=== PATIENT | female | born 1995 | race Caucasian/White ===

== ENCOUNTER → 2017-04-08 | Outpatient (CLI) | payer OTHER ==
[~2017-04-08] MED LIST: METHACHOLINE KIT (J7674) INH ONE
--- NOTE | 2017-04-08 08:20 | PFTRPT ---
Tech: Irina HART RRT Age: 21 Sex: Female Race: Height: 63.50 Inches Weight: 129.00 Lbs BSA: 1.61 Diagnosis: R05 METHACHOLINE CHALLENGE REPORT: ORDERING PROVIDER: Valentin Alicea MD DATE OF SERVICE: 04/08/17 INTERPRETATION: The study was of excellent technical quality. Under protocol, methacholine was administered. At a dose of 0.25 mg (1.375 CDUs), a 37% decline in the FEV1 was noted. The PC20 of 0.05 is significant Flow rates returned to baseline post bronchodilator administration. IMPRESSION: Positive methacholine challenge study. MTDD
== END ==
LOC: M CARPUL 07:34
PROVIDERS: ATTEND Internal Medicine Pulmonary Disease
DX: R05 Cough (principal)
CPT/HCPCS: 94070; J7674

== ENCOUNTER 2018-06-30 04:34 | Inpatient (IN) | payer OTHER, SELFPAY ==
[2018-06-30] MEDS: LACTATED RINGER'S 1000 ML IV (05:02)
[2018-06-30 05:37] LABS: HEMATOCRIT 33.2 % (36.0-47.0); HEMOGLOBIN 10.8 g/dl (12.0-15.5); MEAN CORPUSCULAR HEMOGLOBIN 28.5 pg (27.0-33.0); MEAN CORPUSCULAR HGB CONC 32.5 g/dl (32.0-36.5); MEAN CORPUSCULAR VOLUME 87.6 fl (80.0-96.0); PLATELET COUNT, AUTOMATED 251 10^3/uL (150-450); RED BLOOD COUNT 3.79 10^6/uL (4.00-5.40); RED CELL DISTRIBUTION WIDTH 14.6 % (11.5-14.5); WHITE BLOOD COUNT 13.3 10^3/uL (4.0-10.0)
[2018-06-30] MEDS ORDERED: LR 1,000 ML IV (09:11)
[2018-06-30] MEDS ORDERED: OXYTOCIN DRIP 30 UNITS in APPROPRIATE DILUENT 1 EA IV (09:15)
[2018-06-30 09:45] LABS: BEDSIDE GLUCOSE 83 MG/DL (70-105)
[2018-06-30] MEDS: LR 1,000 ML IV ×2 (17:28→23:30)
[2018-06-30] MEDS: NALBUPHINE HCL 10 MG/ML AMP (J2300) IM (20:01)
[2018-06-30] MEDS: NALBUPHINE HCL 10 MG/ML AMP (J2300) IV (20:04)
[2018-06-30] MEDS: PROMETHAZINE INJ 25 MG/ML VIAL (J2550) IV (20:11)
[2018-07-01] MEDS ORDERED: LR 500 ML IV (01:15)
[2018-07-01] MEDS ORDERED: FENTANYL 2MCG/ML ROPIVACAINE 0.2% IN 0.9% NACL 200ML IVBAG As Ordered (01:57)
[2018-07-01] MEDS ORDERED: ceFAZolin 2 GM/D5W 50 ML IV BAG (J0690 PER 500MG) As Ordered (02:33)
[2018-07-01] MEDS ORDERED: AZITHROMYCIN INJ 500MG VIAL (J0456) As Ordered (02:34)
[2018-07-01] MEDS ORDERED: KETOROLAC 60 MG/2 ML VIAL (J1885) As Ordered (02:40)
[2018-07-01] MEDS ORDERED: OXYTOCIN INJ 10 UNITS/ML VIAL (J2590) As Ordered ×2 (02:40→03:34)
[2018-07-01] MEDS ORDERED: dexameTHASONE 4 MG/ML 1ML VIAL (J1100) As Ordered (02:40)
[2018-07-01] MEDS ORDERED: ONDANSETRON 4MG/2ML VIAL (J2405) As Ordered (02:40)
[2018-07-01] MEDS: AZITHROMYCIN INJ 500 MG, VIAL MATE ADAPTER 1 EACH in D5W 250 ML IV (02:44)
[2018-07-01] MEDS ORDERED: fentaNYL 100 MCG/2 ML INJECTION (J3010) As Ordered (02:45)
[2018-07-01] MEDS ORDERED: MORPHINE PRES-FREE INJ 10 MG/10 ML VIAL (J2274) As Ordered (02:45)
[2018-07-01] MEDS ORDERED: BICITRA 30ML SOLN UDC As Ordered (02:46)
[2018-07-01] MEDS: BICITRA 30ML SOLN UDC PO (02:52)
[2018-07-01] MEDS ORDERED: ePHEDrine SULFATE 25 MG/5 ML(5MG/ML) SYRINGE As Ordered (03:32)
[2018-07-01 03:39] LABS: CORD GAS ABE A -7.2; CORD GAS HCO3 A 21.6 MEQ/L; CORD GAS O2 SAT A 75.1 %; CORD GAS PH A 7.204 UNITS; CORD GAS PO2 A 37.3 mmHg; CORD GAS SBC A 18.2 MEQ/L; CORD GAS TCO2 A 23.3 MEQ/L
[2018-07-01 03:40] LABS: CORD GAS ABE V -7.6; CORD GAS HCO3 V 17.2 MEQ/L; CORD GAS O2 SAT V 95.3 %; CORD GAS PCO2 V 33.5 mmHg; CORD GAS PH V 7.328 UNITS; CORD GAS PO2 V 60.5 mmHg; CORD GAS SBC V 18.4 MEQ/L; CORD GAS TCO2 V 18.2 MEQ/L
[2018-07-01] MEDS: OXYTOCIN DRIP 30 UNITS in APPROPRIATE DILUENT 1 EA IV (04:15)
[2018-07-01] MEDS ORDERED: DOCUSATE SODIUM 100 MG CAP PO (04:15)
[2018-07-01] MEDS ORDERED: NALBUPHINE HCL 10 MG/ML AMP (J2300) IV (04:15)
[2018-07-01] MEDS ORDERED: ONDANSETRON 4MG/2ML VIAL (J2405) IV ×2 (04:15)
[2018-07-01] MEDS ORDERED: fentaNYL 100 MCG/2 ML INJECTION (J3010) IV (04:15)
[2018-07-01] MEDS ORDERED: MOM 30ML SUSPENSION UDC PO (04:15)
[2018-07-01] MEDS ORDERED: MEASLES,MUMPS,RUBELLA VACCINE INJ (MMR-II) (90707) SC (04:15)
[2018-07-01] MEDS ORDERED: RHOGAM 300 MCG (1500 IU) INJ (J2790) IM (04:15)
[2018-07-01] MEDS: LR 1,000 ML IV (04:15)
[2018-07-01] MEDS ORDERED: MEPERIDINE INJ 25 MG/ML VIAL (J2175) IV (04:15)
[2018-07-01] MEDS: PRENATAL VITAMINS CHEWABLE TABLET PO (09:58)
[2018-07-01] MEDS: KETOROLAC 30 MG/ML VIAL (J1885) IV ×3 (10:35→21:49)
[2018-07-02] MEDS: IBUPROFEN 800 MG TAB PO ×3 (06:08→22:11)
[2018-07-02 07:35] LABS: HEMATOCRIT 28.5 % (36.0-47.0); HEMOGLOBIN 9.2 g/dl (12.0-15.5); MEAN CORPUSCULAR HEMOGLOBIN 28.8 pg (27.0-33.0); MEAN CORPUSCULAR HGB CONC 32.3 g/dl (32.0-36.5); MEAN CORPUSCULAR VOLUME 89.1 fl (80.0-96.0); PLATELET COUNT, AUTOMATED 208 10^3/uL (150-450); RED CELL DISTRIBUTION WIDTH 14.6 % (11.5-14.5); WHITE BLOOD COUNT 13.1 10^3/uL (4.0-10.0)
[2018-07-02] MEDS: PRENATAL VITAMINS CHEWABLE TABLET PO (08:19)
[2018-07-02] MEDS: NORCO, ANEXSIA 5/325MG TABLET (HYDROcodone/ACETAMINOPHEN) PO ×2 (08:19→19:26)
[2018-07-03] MEDS: NORCO, ANEXSIA 5/325MG TABLET (HYDROcodone/ACETAMINOPHEN) PO ×2 (04:20→12:10)
[2018-07-03] MEDS: IBUPROFEN 800 MG TAB PO (06:14)
[2018-07-03] MEDS: PRENATAL VITAMINS CHEWABLE TABLET PO (08:00)
== END 2018-07-03 12:55 | disposition home or self-care (01) | DRG 773 ==
LOC: M LDO 04:34 → M OBS 07-01 06:30 → M LDI 05:00
PROVIDERS: Obstetrics & Gynecology
PROC: 10D00Z1 Extraction of Products of Conception, Low, Open Approach (ICD-10-PCS; principal; 2018-07-01 02:56)
DX: O42.02 Full-term premature rupture of membranes, onset of labor within 24 hours of rupture (principal); O24.420 Gestational diabetes mellitus in childbirth, diet controlled; Z3A.39 39 weeks gestation of pregnancy; O99.214 Obesity complicating childbirth; E66.9 Obesity, unspecified; Z68.35 Body mass index [BMI] 35.0-35.9, adult; O62.0 Primary inadequate contractions; O69.81X0 Labor and delivery complicated by cord around neck, without compression, not applicable or unspecified; O76 Abnormality in fetal heart rate and rhythm complicating labor and delivery; Z37.0 Single live birth

== ENCOUNTER 2018-07-04 20:24 | Emergency (ER) | payer OTHER ==
[2018-07-04] MEDS: diphenhydrAMINE 25 MG CAP PO (22:32)
[2018-07-04] MEDS: predniSONE 20 MG TAB PO (22:32)
== END 2018-07-04 22:37 | disposition home or self-care (01) ==
LOC: M ED 20:24
DX: L23.9 Allergic contact dermatitis, unspecified cause (principal); Z91.040 Latex allergy status
CPT/HCPCS: 99282

== ENCOUNTER 2018-11-04 15:58 | Emergency (ER) | payer OTHER ==
[~2018-11-04] VITALS: Ht 157.5 cm; Wt 67.3 kg
[~2018-11-04 15:58] MED LIST changes: +COLA100C5 PO; +IBUP-1114 PO; -METHACHOLINE KIT (J7674) INH ONE; +NORC1TAB4 PO; +PRED20TA PO; +PRENTAB9 PO; +TRIA1CR80 TOP
[2018-11-04] MEDS ORDERED: PILL CRUSHER/CUTTER 1 EACH XX ONE (16:01)
[2018-11-04] MEDS ORDERED: ZOLO50TA PO (17:10)
[2018-11-04 18:10] LABS: HEMATOCRIT 38.3 % (36.0-47.0); HEMOGLOBIN 12.7 g/dl (12.0-15.5); MEAN CORPUSCULAR HGB CONC 33.2 g/dl (32.0-36.5); MEAN CORPUSCULAR VOLUME 84.4 fl (80.0-96.0); PLATELET COUNT, AUTOMATED 250 10^3/uL (150-450); RED BLOOD COUNT 4.54 10^6/uL (4.00-5.40); WHITE BLOOD COUNT 8.8 10^3/uL (4.0-10.0)
[2018-11-04 18:29] LABS: HCG, SERUM QUALITATIVE NEGATIVE (NEGATIVE)
[2018-11-04 18:39] LABS: ALT/SGPT 22 U/L (12-78); BLOOD UREA NITROGEN 10 MG/DL (7-18); CALCIUM LEVEL 8.5 MG/DL (8.5-10.1); CARBON DIOXIDE LEVEL 20 MEQ/L (21-32); CHLORIDE LEVEL 110 MEQ/L (98-107); CREATININE FOR GFR 0.71 MG/DL (0.55-1.30); GLOMERULAR FILTRATION RATE > 60.0 (>60); GLUCOSE, FASTING 80 MG/DL (70-100); POTASSIUM SERUM 3.9 MEQ/L (3.5-5.1); SODIUM LEVEL 142 MEQ/L (136-145)
[2018-11-04 18:40] LABS: ACETAMINOPHEN LEVEL < 2.0 UG/ML (10.0-30.0); ALBUMIN 3.8 GM/DL (3.2-5.2); BILIRUBIN,DIRECT 0.1 MG/DL (0.0-0.2); BILIRUBIN,TOTAL 0.3 MG/DL (0.2-1.0); ETHYL ALCOHOL (ETHANOL) < 0.003 % (0.000-0.010); SALICYLATE LEVEL < 1.7 MG/DL (5.0-30.0); TOTAL PROTEIN 7.5 GM/DL (6.4-8.2)
[2018-11-04 19:56] LABS: AMPHETAMINES LEVEL URINE NEGATIVE (NEGATIVE); BARBITURATES URINE NEGATIVE (NEGATIVE); BENZODIAZEPINES URINE NEGATIVE (NEGATIVE); CANNABINOIDS URINE NEGATIVE (NEGATIVE); COCAINE METABOLITE URINE NEGATIVE (NEGATIVE); METHADONE URINE NEGATIVE (NEGATIVE); OPIATES URINE NEGATIVE (NEGATIVE); PHENCYCLIDINE URINE NEGATIVE (NEGATIVE)
[2018-11-05] MEDS ORDERED: SERTRALINE HCL 50 MG TAB PO ONE (07:30)
[2018-11-05] MEDS ORDERED: ONDANSETRON 4 MG ORAL DISINTEGRATING TAB (Q0162 PER 1MG) PO ONE (13:15)
[2018-11-05] MEDS ORDERED: LORazepam 0.5 MG TAB PO ONE (14:30)
[2018-11-05 14:35] VITALS: BP 124/83
--- NOTE | 2018-11-05 18:44 | ECGEPIP ---
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
== END 2018-11-05 15:01 ==
LOC: M ED 15:58
DX: R45.851 Suicidal ideations (principal); F32.9 Major depressive disorder, single episode, unspecified; F41.9 Anxiety disorder, unspecified; F98.8 Other specified behavioral and emotional disorders with onset usually occurring in childhood and adolescence; I49.9 Cardiac arrhythmia, unspecified; Z91.040 Latex allergy status; Z79.899 Other long term (current) drug therapy
CPT/HCPCS: 36415; 80048; 80076; 80307; 84443; 84703; 85027; 93005; 99284; G0480; Q0162

== ENCOUNTER → 2018-12-22 | Outpatient (REF) | payer OTHER ==
[~2018-12-22] MED LIST changes: +AMPH10CA PO; +LOES1TAB7 PO; +NITR100C2 PO; -NORC1TAB4 PO; +NORC1TAB7 PO; +ZOLO50TA PO
== END ==
LOC: M WUC 09:26
PROVIDERS: ATTEND Physician Assistant
DX: R30.0 Dysuria (principal)

== ENCOUNTER 2018-12-24 17:35 | Emergency (ER) | payer OTHER ==
[~2018-12-24] VITALS: Ht 157.5 cm; Wt 63.6 kg
[~2018-12-24 17:35] MED LIST changes: -AMPH10CA PO; -LOES1TAB7 PO; -NITR100C2 PO
[2018-12-24] MEDS ORDERED: LOES1TAB7 PO (17:51)
[2018-12-24] MEDS ORDERED: AMPH10CA PO (17:51)
[2018-12-24] MEDS ORDERED: NITR100C2 PO (17:51)
[2018-12-24 18:08] LABS: HEMATOCRIT 41.6 % (36.0-47.0); HEMOGLOBIN 13.6 g/dl (12.0-15.5); MEAN CORPUSCULAR HEMOGLOBIN 29.1 pg (27.0-33.0); MEAN CORPUSCULAR HGB CONC 32.7 g/dl (32.0-36.5); MEAN CORPUSCULAR VOLUME 88.9 fl (80.0-96.0); PLATELET COUNT, AUTOMATED 336 10^3/uL (150-450); RED BLOOD COUNT 4.68 10^6/uL (4.00-5.40); WHITE BLOOD COUNT 10.7 10^3/uL (4.0-10.0)
[2018-12-24 18:25] LABS: HCG, SERUM QUALITATIVE NEGATIVE (NEGATIVE)
[2018-12-24 18:28] LABS: AMPHETAMINES LEVEL URINE POSITIVE (NEGATIVE); BARBITURATES URINE NEGATIVE (NEGATIVE); BENZODIAZEPINES URINE NEGATIVE (NEGATIVE); CANNABINOIDS URINE NEGATIVE (NEGATIVE); COCAINE METABOLITE URINE NEGATIVE (NEGATIVE); METHADONE URINE NEGATIVE (NEGATIVE); OPIATES URINE NEGATIVE (NEGATIVE); PHENCYCLIDINE URINE NEGATIVE (NEGATIVE)
[2018-12-24 18:40] LABS: ALBUMIN 4.1 GM/DL (3.2-5.2); ALT/SGPT 21 U/L (12-78); BILIRUBIN,DIRECT 0.1 MG/DL (0.0-0.2); BILIRUBIN,TOTAL 0.4 MG/DL (0.2-1.0); BLOOD UREA NITROGEN 15 MG/DL (7-18); CALCIUM LEVEL 9.3 MG/DL (8.5-10.1); CARBON DIOXIDE LEVEL 23 MEQ/L (21-32); CHLORIDE LEVEL 106 MEQ/L (98-107); GLOMERULAR FILTRATION RATE > 60.0 (>60); GLUCOSE, FASTING 82 MG/DL (70-100); POTASSIUM SERUM 4.2 MEQ/L (3.5-5.1); SALICYLATE LEVEL < 1.7 MG/DL (5.0-30.0); SODIUM LEVEL 139 MEQ/L (136-145); TOTAL PROTEIN 8.1 GM/DL (6.4-8.2)
[2018-12-24 18:41] LABS: ACETAMINOPHEN LEVEL < 2.0 UG/ML (10.0-30.0); ETHYL ALCOHOL (ETHANOL) < 0.003 % (0.000-0.010)
[2018-12-24 20:07] VITALS: BP 133/91
== END 2018-12-24 20:08 | disposition home or self-care (01) ==
LOC: M ED 17:35
DX: F43.0 Acute stress reaction (principal); Z79.899 Other long term (current) drug therapy; Z91.040 Latex allergy status
CPT/HCPCS: 80048; 80076; 80307; 84443; 84703; 85027; 99284; G0480

== ENCOUNTER → 2019-01-28 | Outpatient (CLI) | payer OTHER ==
[~2019-01-28] MED LIST changes: +AMPH10CA PO; +LOES1TAB7 PO; +NITR100C2 PO
[2019-01-28 20:00] LABS: BASO % 0.4 % (0.0-1.0); EOS # 0.3 10^3/uL (0.0-0.50); EOS % 2.8 % (0.0-3.0); HEMATOCRIT 41.8 % (36.0-47.0); HEMOGLOBIN 13.2 g/dl (12.0-15.5); LYMPH # 3.2 10^3/uL (1.5-6.5); LYMPH % 28.5 % (24.0-44.0); MEAN CORPUSCULAR HEMOGLOBIN 28.4 pg (27.0-33.0); MEAN CORPUSCULAR HGB CONC 31.6 g/dl (32.0-36.5); MEAN CORPUSCULAR VOLUME 89.9 fl (80.0-96.0); MONO # 0.6 10^3/uL (0.0-0.8); MONO % 5.5 % (0.0-5.0); NEUTROPHILS % 62.5 % (36.0-66.0); PLATELET COUNT, AUTOMATED 322 10^3/uL (150-450); RED BLOOD COUNT 4.65 10^6/uL (4.00-5.40); WHITE BLOOD COUNT 11.1 10^3/uL (4.0-10.0)
[2019-01-28 20:22] LABS: ALBUMIN 3.8 GM/DL (3.2-5.2); ALT/SGPT 18 U/L (12-78); BILIRUBIN,TOTAL 0.3 MG/DL (0.2-1.0); BLOOD UREA NITROGEN 15 MG/DL (7-18); CALCIUM LEVEL 9.2 MG/DL (8.5-10.1); CARBON DIOXIDE LEVEL 24 MEQ/L (21-32); CHLORIDE LEVEL 105 MEQ/L (98-107); CREATININE FOR GFR 1.03 MG/DL (0.55-1.30); GLOMERULAR FILTRATION RATE > 60.0 (>60); GLUCOSE, FASTING 78 MG/DL (70-100); POTASSIUM SERUM 4.6 MEQ/L (3.5-5.1); SODIUM LEVEL 141 MEQ/L (136-145); TOTAL PROTEIN 7.7 GM/DL (6.4-8.2)
[2019-02-01 00:07] LABS: EBV AB TO NUCLEAR ANTIGEN >600.0 U/mL (0.0-17.9); EBV VIRAL CAPSID AG IgM <36.0 U/mL (0.0-35.9)
== END ==
LOC: M WUC 15:41
PROVIDERS: ATTEND Physician Assistant
DX: J02.9 Acute pharyngitis, unspecified (principal)

== ENCOUNTER 2019-11-15 08:27 | Day surgery (SDC) | payer OTHER ==
[~2019-11-15] VITALS: Ht 157.5 cm; Wt 59.9 kg
[~2019-11-15 08:27] MED LIST changes: +ADDE1TAB14 PO; -AMPH10CA PO; +AMPH1CAP14 PO; +IBUP200C25 PO; +LIDOCAINE 1% MDV 20ML VIAL SQ PRN; +LR 1,000 ML IV ONE; +PROAAER10 INH; +ceFAZolin SOD 2 GM in IV 1 EA IV ONE
[2019-11-15] MEDS ORDERED: EPINEPHrine INJ 1 MG/ML 1ML AMP ONE ×2 (08:28)
[2019-11-15] MEDS ORDERED: dexameTHASONE 10MG/1ML VIAL PRES.FREE (J1100 PER 1MG) ONE ×2 (08:28)
[2019-11-15] MEDS ORDERED: ROPIvacaine 0.5% 30ML INJECTION (J2795 PER 1MG) ONE ×2 (08:28)
[2019-11-15] MEDS ORDERED: fentaNYL 100 MCG/2 ML INJECTION (J3010) As Ordered ONE ×2 (09:11→10:50)
[2019-11-15] MEDS ORDERED: MIDAZOLAM INJ 2MG/2ML VIAL (J2250 PER 1MG) As Ordered ONE (09:11)
[2019-11-15] MEDS ORDERED: LIDOCAINE 2% 100MG/5ML SDV (FOR ANES.) As Ordered ONE (09:36)
[2019-11-15] MEDS ORDERED: propofoL 200 MG/20 ML VIAL As Ordered ONE (09:36)
[2019-11-15] MEDS ORDERED: ROCURONIUM BROMIDE 50 MG/5 ML VIAL As Ordered ONE (09:36)
[2019-11-15] MEDS ORDERED: dexameTHASONE 4 MG/ML 1ML VIAL (J1100 PER 1MG) As Ordered ONE (09:36)
[2019-11-15] MEDS ORDERED: ONDANSETRON 4MG/2ML VIAL As Ordered ONE (09:36)
[2019-11-15] MEDS ORDERED: MIDAZOLAM INJ 2MG/2ML VIAL (J2250 PER 1MG) IV ONE (10:15)
[2019-11-15] MEDS ORDERED: fentaNYL 100 MCG/2 ML INJECTION (J3010) IV ONE (10:15)
[2019-11-15] MEDS ORDERED: EPINEPHrine 1MG/ML INJ 30ML MD-VIAL As Ordered ONE (10:44)
[2019-11-15] MEDS ORDERED: SUGAMMADEX SODIUM 500 MG/5 ML VIAL (BRIDION) As Ordered ONE (11:43)
[2019-11-15] MEDS ORDERED: ACETAMINOPHEN 1000MG 100ML IV BTL (OFIRMEV) (J0131 PER 10MG) As Ordered ONE (11:44)
[2019-11-15] MEDS ORDERED: ONDANSETRON 4MG/2ML VIAL IV PRN (14:45)
[2019-11-15] MEDS ORDERED: oxyCODONE 5MG TAB PO PRN ×3 (14:45)
[2019-11-15] MEDS ORDERED: fentaNYL 100 MCG/2 ML INJECTION (J3010) IV PRN (14:45)
[2019-11-15] MEDS ORDERED: LR 1,000 ML IV SCH (14:45)
[2019-11-15 16:30] VITALS: BP 117/79
--- NOTE | 2019-11-15 19:41 | RO ---
DATE OF PROCEDURE: 11/15/2019 PREPROCEDURE DIAGNOSIS: Right posterior labral tear. POSTPROCEDURE DIAGNOSIS: Right posterior labral tear. PROCEDURE: Shoulder arthroscopy of the right posterior labral tear. SURGEON: Warner Chatterjee MD CARPENTER'S ASSISTANT: COOKIE Gardiner who was essential for suture management and tool management throughout the procedure. ANESTHESIA: General. PREOPERATIVE ANTIBIOTICS: 2 grams of Ancef. BLOOD LOSS: Minimal. SPECIMENS: None. INDICATIONS: A 24-year-old female who failed nonoperative modes of treatment. We discussed the risks and benefits of surgical intervention, including, but not limited to, infection, damage to surrounding structures, incomplete relief and patient wished to proceed. DESCRIPTION OF PROCEDURE: The patient was brought back to the operating room in supine position, underwent general anesthesia, then was placed in lateral decubitus with the right arm in traction. We then prepped and draped the right arm in the usual fashion. We had a time-out to confirm the site, side and surgery. Once in agreement, made a stab incision in the posterolateral portal. Once we entered the glenohumeral space, we established our anterior portal and used an Arthrex 7 x 7 cannula within the rotator interval. At which point, we replaced our posterior portal with a 7 x 7 Arthrex cannula and inserted a cannula from the anterior after we had already inspected the anterior labrum, bicep cuff and all appeared to be intact, along with the joint surface and axillary pouch. We then switched the camera to the anterior portal. I evaluated the posterior labrum. There appeared to be a posterior labral tear along from about 11 o'clock to 7 o'clock. We then used the elevator to free up the posterior labrum off the glenoid. We then used a shaver and a ring curette to cut the bone and also remove a small area of articular cartilage on the posterior margin. We then established our accessory portal for a cannulated anchor system and localized using a long spinal needle on the posterolateral aspect while coursing this distal from the acromion. We then inserted the Nitinol wire, then the switching stick over top, and then the cannula over top of that. At which point, we used an Arthrex 90 degrees to the right lasso to pass the wire from deep to the labrum through the capsule. Once this was done, we fixed labral tape through our pass, at which point we drilled for our PushLock anchor in such a fashion to mobilize the capsule superiorly. We then loaded the anchor and inserted the PushLock, had a nice bite within the bone, and good mobilization of tissue. We then repeated this two more times in the posterior labrum, although switching to FiberLink due to difficulty with passing the FiberTape through the anchor. Once we were finished, we had three anchors along the posterior labrum at approximately 7 o'clock, 9 o'clock and 11 o'clock with a nice capsule bumper. We then used the shaver one more time to debride from the labrum along with any debris within the joints. We were happy with our repair at that point. We started suctioning as much fluid out at this point and closed our three portals with #3-0 nylon. We placed a dressing of Adaptic gauze, ABD over top. The patient was then awakened, taken to the post-anesthesia care unit (PACU) in stable condition. POSTOPERATIVE PLAN: The patient will work on pain control and also be on a strict protocol limiting internal rotation. For the first 2 weeks, she will work on pain control and range of motion of the elbow and wrist and then we will progress her as we see fit. JOSEPH
== END 2019-11-15 16:50 | disposition home or self-care (01) ==
LOC: M SDC 08:27
PROVIDERS: ATTEND Orthopaedic Surgery Hand Surgery
DX: S43.431A Superior glenoid labrum lesion of right shoulder, initial encounter (principal); X58.XXXA Exposure to other specified factors, initial encounter; Y92.89 Other specified places as the place of occurrence of the external cause; Y93.9 Activity, unspecified; Y99.9 Unspecified external cause status; K58.8 Other irritable bowel syndrome; F90.9 Attention-deficit hyperactivity disorder, unspecified type; D64.9 Anemia, unspecified; J45.909 Unspecified asthma, uncomplicated; F17.290 Nicotine dependence, other tobacco product, uncomplicated; Z79.899 Other long term (current) drug therapy
CPT/HCPCS: 29807; 64415; 81025; C1713; J0131; J0171; J0690; J1100; J2250; J2405; J2795; J3010

== ENCOUNTER → 2020-05-24 | Outpatient (CLI) | payer BC ==
[~2020-05-24] MED LIST changes: +DEXT10CA5; -LIDOCAINE 1% MDV 20ML VIAL SQ PRN; -LR 1,000 ML IV ONE; -ceFAZolin SOD 2 GM in IV 1 EA IV ONE
[2020-05-24 13:28] LABS: BASO % 0.4 % (0.0-1.0); EOS # 0.4 10^3/uL (0.0-0.5); EOS % 4.8 % (0.0-3.0); HEMATOCRIT 43.4 % (36.0-47.0); HEMOGLOBIN 13.8 g/dl (12.0-15.5); LYMPH # 2.7 10^3/uL (1.5-5.0); LYMPH % 30.1 % (24.0-44.0); MEAN CORPUSCULAR HEMOGLOBIN 29.1 pg (27.0-33.0); MEAN CORPUSCULAR HGB CONC 31.8 g/dl (32.0-36.5); MEAN CORPUSCULAR VOLUME 91.6 fl (80.0-96.0); MONO # 0.5 10^3/uL (0.0-0.8); MONO % 5.7 % (0.0-5.0); NEUTROPHILS # 5.3 10^3/uL (1.5-8.5); NEUTROPHILS % 58.9 % (36.0-66.0); PLATELET COUNT, AUTOMATED 288 10^3/uL (150-450); RED BLOOD COUNT 4.74 10^6/uL (4.00-5.40)
[2020-05-24 13:47] LABS: ALBUMIN 4.2 GM/DL (3.2-5.2); ALT/SGPT 19 U/L (12-78); BILIRUBIN,DIRECT 0.1 MG/DL (0.0-0.2); BILIRUBIN,TOTAL 0.4 MG/DL (0.2-1.0); FERRITIN 12 NG/ML (8-252); IRON (FE) 36 UG/DL (50-170); PERCENT SATURATION 11.3 % (13.2-45.0); TOTAL IRON BINDING CAPACITY 320 UG/DL (250-450); TOTAL PROTEIN 7.7 GM/DL (6.4-8.2)
[2020-05-24 13:53] LABS: FOLATE 8.2 NG/ML; VITAMIN B12 LEVEL 500 PG/ML
[2020-05-24 13:54] LABS: H PYLORI QUALITATIVE IgG NEGATIVE (NEGATIVE)
[2020-05-24 14:12] LABS: ERYTHROCYTE SEDIMENTATION RATE 8 mm/hr (0-20)
[2020-05-26 07:07] LABS: IGASUB2 226.2 mg/dL (73.2-301.2); IGASUB3 46.3 mg/dL (13.4-97.9); IgA SERUM (part of Subclasses) 303 mg/dL (87-352); TISSUE TRANSGLUTAMINASE IgA <2 U/mL (0-3); UNITSIGA FOR GLIADIN IGA 3 units (0-19); UNITSIGG FOR GLIADIN IGG 2 units (0-19)
== END ==
LOC: M LAB 11:56
PROVIDERS: ATTEND Internal Medicine Gastroenterology
DX: R10.30 Lower abdominal pain, unspecified (principal)

== ENCOUNTER → 2020-07-12 | Outpatient (CLI) | payer BC | LOC: M LABSMTC 12:46 | PROVIDERS: ATTEND Anesthesiology | DX: Z01.812 Encounter for preprocedural laboratory examination (principal); Z20.828 Contact with and (suspected) exposure to other viral communicable diseases ==

== ENCOUNTER 2020-07-17 10:38 | Day surgery (SDC) | payer BC ==
[~2020-07-17] VITALS: Ht 157.5 cm; Wt 62.6 kg
[~2020-07-17 10:38] MED LIST changes: +LIDOCAINE 2% 100MG/5ML SDV (FOR ANES.) As Ordered ONE; +NS 1,000 ML IV ONE; +fentaNYL 100 MCG/2 ML INJECTION (J3010) As Ordered ONE; +propofoL 500 MG/50 ML VIAL As Ordered ONE
--- NOTE | 2020-07-17 12:16 | ROOR ---
Patient Name: Betty Torres Procedure Date: 07/17/2020 11:22 AM Date of : 1995 Age: 25 Room: [facility] Gender: Female Note Status: Finalized Procedure: Upper GI endoscopy Indications: Epigastric abdominal pain, Follow-up of celiac disease Providers: Howard Ma MD Referring MD: Catalina LEMUS DO Requesting Provider: Medicines: Monitored Anesthesia Care Complications: No immediate complications. Procedure: Pre-Anesthesia Assessment: - Prior to the procedure, a History and Physical was performed, and patient medications and allergies were reviewed. The patient is competent. The risks and benefits of the procedure and the sedation options and risks were discussed with the patient. All questions were answered and informed consent was obtained. Patient identification and proposed procedure were verified by the physician, the nurse and the anesthesiologist in the procedure room. Mental Status Examination: alert and oriented. Airway Examination: normal oropharyngeal airway and neck mobility. Respiratory Examination: clear to auscultation. CV Examination: normal. Prophylactic Antibiotics: The patient does not require prophylactic antibiotics. Prior Anticoagulants: The patient has taken no previous anticoagulant or antiplatelet agents. ASA Grade Assessment: II - A patient with mild systemic disease. After reviewing the risks and benefits, the patient was deemed in satisfactory condition to undergo the procedure. The anesthesia plan was to use monitored anesthesia care (MAC). Immediately prior to administration of medications, the patient was re-assessed for adequacy to receive sedatives. The heart rate, respiratory rate, oxygen saturations, blood pressure, adequacy of pulmonary ventilation, and response to care were monitored throughout the procedure. The physical status of the patient was re-assessed after the procedure. The Endoscope was introduced through the mouth, and advanced to the second part of duodenum. The upper GI endoscopy was accomplished without difficulty. The patient tolerated the procedure well. Findings: LA Grade A (one or more mucosal breaks less than 5 mm, not extending between tops of 2 mucosal folds) esophagitis with no bleeding was found in the distal esophagus. Mucosal changes including longitudinal furrows, white plaques and circumferential folds were found in the middle third of the esophagus and in the lower third of the esophagus. Biopsies were obtained from the proximal and distal esophagus with cold forceps for histology of suspected eosinophilic esophagitis. Biopsies were obtained from the proximal and distal esophagus with cold forceps for histology of suspected eosinophilic esophagitis. Verification of patient identification for the specimen was done by the physician and nurse using the patient's name, date and medical record number. Estimated blood loss was minimal. Scattered mild inflammation characterized by erythema was found in the gastric antrum. Biopsies were taken with a cold forceps for Helicobacter pylori testing. Patchy moderately erythematous mucosa without active bleeding and with no stigmata of bleeding was found in the first portion of the duodenum. Biopsies for histology were taken with a cold forceps for evaluation of celiac disease. Impression: - LA Grade A reflux esophagitis. - Esophageal mucosal changes suspicious for eosinophilic esophagitis. Biopsied. - Gastritis. Biopsied. - Erythematous duodenopathy. Biopsied. Recommendation: - Patient has a contact number available for emergencies. The signs and symptoms of potential delayed complications were discussed with the patient. Return to normal activities tomorrow. Written discharge instructions were provided to the patient. - High fiber diet. - Continue present medications. - Await pathology results. - Repeat upper endoscopy in 3 years for surveillance based on pathology results and depending on the symptoms and clinical response. - Telephone GI clinic for pathology results in 2 weeks. - Return to primary care physician. Procedure Code(s): --- Professional --- 40652, Esophagogastroduodenoscopy, flexible, transoral; with biopsy, single or multiple Diagnosis Code(s): --- Professional --- K21.0, Gastro-esophageal reflux disease with esophagitis K22.8, Other specified diseases of esophagus K29.70, Gastritis, unspecified, without bleeding K31.89, Other diseases of stomach and duodenum R10.13, Epigastric pain K90.0, Celiac disease CPT copyright 2019 [employer]. All rights reserved. The codes documented in this report are preliminary and upon sales representative church furniture review may be revised to meet current compliance requirements. Howard Ma MD Howard Ma MD 07/17/2020 12:15:23 PM Electronically signed by Howard Ma MD Number of Addenda: 0 Note Initiated On: 07/17/2020 11:22 AM Estimated Blood Loss: Estimated blood loss was minimal.
--- NOTE | 2020-07-17 12:18 | ROOR ---
Patient Name: Betty Torres Procedure Date: 07/17/2020 11:23 AM Date of : 1995 Age: 25 Room: [facility] Gender: Female Note Status: Finalized Procedure: Colonoscopy Indications: Hematochezia, Change in bowel habits, Constipation Providers: Howard Ma MD Referring MD: Catalina LEMUS DO Requesting Provider: Medicines: Monitored Anesthesia Care Complications: No immediate complications. Procedure: Pre-Anesthesia Assessment: - Prior to the procedure, a History and Physical was performed, and patient medications and allergies were reviewed. The patient is competent. The risks and benefits of the procedure and the sedation options and risks were discussed with the patient. All questions were answered and informed consent was obtained. Patient identification and proposed procedure were verified by the physician, the nurse and the anesthesiologist in the procedure room. Mental Status Examination: alert and oriented. Airway Examination: normal oropharyngeal airway and neck mobility. Respiratory Examination: clear to auscultation. CV Examination: normal. Prophylactic Antibiotics: The patient does not require prophylactic antibiotics. Prior Anticoagulants: The patient has taken no previous anticoagulant or antiplatelet agents. ASA Grade Assessment: II - A patient with mild systemic disease. After reviewing the risks and benefits, the patient was deemed in satisfactory condition to undergo the procedure. The anesthesia plan was to use monitored anesthesia care (MAC). Immediately prior to administration of medications, the patient was re-assessed for adequacy to receive sedatives. The heart rate, respiratory rate, oxygen saturations, blood pressure, adequacy of pulmonary ventilation, and response to care were monitored throughout the procedure. The physical status of the patient was re-assessed after the procedure. The Colonoscope was introduced through the anus and advanced to the terminal ileum, with identification of the appendiceal orifice and IC valve. The colonoscopy was performed without difficulty. The patient tolerated the procedure well. The quality of the bowel preparation was good. The terminal ileum, ileocecal valve, appendiceal orifice, and rectum were photographed. Scope insertion time was 3 minutes. Scope withdrawal time was 9 minutes. The total duration of the procedure was 12 minutes. Findings: The perianal and digital rectal examinations were normal. The terminal ileum appeared normal. Normal mucosa was found in the entire colon. Biopsies for histology were taken with a cold forceps from the right colon, left colon and rectosigmoid colon for evaluation of microscopic colitis. Verification of patient identification for the specimen was done by the physician and nurse using the patient's name, date and medical record number. Estimated blood loss was minimal. Non-bleeding external and internal hemorrhoids were found during retroflexion. The hemorrhoids were medium-sized. Impression: - The examined portion of the ileum was normal. - Normal mucosa in the entire examined colon. Biopsied. - Non-bleeding external and internal hemorrhoids. Recommendation: - Patient has a contact number available for emergencies. The signs and symptoms of potential delayed complications were discussed with the patient. Return to normal activities tomorrow. Written discharge instructions were provided to the patient. - High fiber diet. - Continue present medications. - Await pathology results. - Repeat colonoscopy at age 50 for screening purposes. - Telephone GI clinic for pathology results in 2 weeks. - Return to primary care physician. Procedure Code(s): --- Professional --- 90716, Colonoscopy, flexible; with biopsy, single or multiple Diagnosis Code(s): --- Professional --- K64.8, Other hemorrhoids K92.1, Melena (includes Hematochezia) R19.4, Change in bowel habit K59.00, Constipation, unspecified CPT copyright 2019 [employer]. All rights reserved. The codes documented in this report are preliminary and upon fiber optic assembler review may be revised to meet current compliance requirements. Howard Ma MD Howard Ma MD 07/17/2020 12:18:46 PM Electronically signed by Howard Ma MD Number of Addenda: 0 Note Initiated On: 07/17/2020 11:23 AM Estimated Blood Loss: Estimated blood loss was minimal.
[2020-07-17 12:30] VITALS: BP 121/88
== END 2020-07-17 12:55 | disposition home or self-care (01) ==
LOC: M OPP 10:38
PROVIDERS: ATTEND Internal Medicine Gastroenterology
DX: K92.1 Melena (principal); K64.8 Other hemorrhoids; R19.4 Change in bowel habit; K21.00 Gastro-esophageal reflux disease with esophagitis, without bleeding; K22.8 Other specified diseases of esophagus; K29.70 Gastritis, unspecified, without bleeding; K31.89 Other diseases of stomach and duodenum; R10.13 Epigastric pain; Z79.899 Other long term (current) drug therapy; Z91.048 Other nonmedicinal substance allergy status; Z87.891 Personal history of nicotine dependence
CPT/HCPCS: 43239; 45380; 88305; J3010

== ENCOUNTER → 2020-07-20 | Outpatient (REF) | payer SELFPAY ==
[~2020-07-20] MED LIST changes: -LIDOCAINE 2% 100MG/5ML SDV (FOR ANES.) As Ordered ONE; -NS 1,000 ML IV ONE; -fentaNYL 100 MCG/2 ML INJECTION (J3010) As Ordered ONE; -propofoL 500 MG/50 ML VIAL As Ordered ONE
== END ==
LOC: M LABSMTC 08:35 → EDSTATUS 14:00 → M LABSMTC 14:15
PROVIDERS: ATTEND Pediatrics
DX: Z20.828 Contact with and (suspected) exposure to other viral communicable diseases (principal)

== ENCOUNTER → 2020-08-21 | Outpatient (CLI) | payer BC | LOC: M LABSMTC 12:31 | PROVIDERS: ATTEND Pediatrics | DX: Z20.828 Contact with and (suspected) exposure to other viral communicable diseases (principal) ==

== ENCOUNTER → 2020-08-30 | Outpatient (REF) | payer SELFPAY | LOC: M LABSMTC 14:01 → EDSTATUS 14:20 → M LABSMTC 14:31 | PROVIDERS: ATTEND Pediatrics | DX: Z20.828 Contact with and (suspected) exposure to other viral communicable diseases (principal) ==

== ENCOUNTER → 2020-10-01 | Outpatient (CLI) | payer BC ==
[2020-10-04 13:07] LABS: E001-IgE Cat Epith/Dander 4.08 kU/L (Class IV); E003-IGE HORSE EPITHELIA/DAND 0.48 kU/L (Class I); E004-IGE COW DANDER <0.10 kU/L (Class 0); E005-IgE Dog Dander 0.61 kU/L (Class II); F002-IGE MILK 0.45 kU/L (Class I); F002-IgE Milk 0.47 kU/L (Class I); F013-IgE Peanut < 0.10 kU/L (Class 0); F014-IGE SOYBEAN <0.10 kU/L (Class 0); F014-IgE Soybean < 0.10 kU/L (Class 0); F026-IgE Pork < 0.10 kU/L (Class 0); F027-IgE Beef < 0.10 kU/L (Class 0); F075-IGE EGG YOLK <0.10 kU/L (Class 0); F245-IgE Egg, Whole 0.14 kU/L (Class 0/I); FX02-IgE Food Mix (Sea Foods) Negative (.); G002-IgE Bermuda Grass < 0.10 kU/L (Class 0); G008-IgE Kentucky Bluegrass < 0.10 kU/L (Class 0); M001-IgE Penicillium chrysogen < 0.10 kU/L (Class 0); M002 IgE Cladosporium herbaru < 0.10 kU/L (Class 0); M003 IgE Aspergillus fumigatu < 0.10 kU/L (Class 0); M006-IgE Alternaria alternata < 0.10 kU/L (Class 0); T001-IgE Maple/Box Elder < 0.10 kU/L (Class 0); T003-IgE Common Silver Birch < 0.10 kU/L (Class 0); T006-IgE Cedar, Mountain < 0.10 kU/L (Class 0); T007-IgE Oak, White < 0.10 kU/L (Class 0); T008-IgE Elm, American < 0.10 kU/L (Class 0); T015-IgE Ash, White < 0.10 kU/L (Class 0); T041-IgE Hickory, White < 0.10 kU/L (Class 0); T070-IgE White Mulberry < 0.10 kU/L (Class 0); W001-IgE Ragweed, Short < 0.10 kU/L (Class 0); W009-IgE Plantain, English < 0.10 kU/L (Class 0); W014-IgE Pigweed, Rough < 0.10 kU/L (Class 0); W018-IgE Sheep Sorrel < 0.10 kU/L (Class 0)
== END ==
LOC: M LAB 12:19
PROVIDERS: ATTEND Allergy & Immunology
DX: J32.0 Chronic maxillary sinusitis (principal); R05 Cough; H10.45 Other chronic allergic conjunctivitis

== ENCOUNTER 2020-11-30 19:30 | Emergency (ER) | payer BC ==
[~2020-11-30] VITALS: Ht 157.5 cm; Wt 60.3 kg
[2020-11-30] MEDS ORDERED: EPIP0.3I2 IM (19:37)
[2020-11-30] MEDS ORDERED: CETI-24 PO (19:37)
[2020-11-30] MEDS ORDERED: ZOFR4TAB16 PO (19:37)
[2020-11-30] MEDS ORDERED: NS 1,000 ML IV ONE (20:30)
[2020-11-30] MEDS ORDERED: diazePAM 10MG/2ML SYRINGE (J3360 PER 5MG) IV ONE (20:30)
[2020-11-30] MEDS ORDERED: KETOROLAC 30 MG/ML 1ML VIAL IV ONE (20:30)
[2020-11-30] MEDS ORDERED: METOCLOPRAMIDE INJ 10MG/2ML VIAL (J2765 PER 1) IV ONE (20:30)
[2020-11-30 21:09] LABS: BASO % 0.4 % (0.0-1.0); EOS # 0.3 10^3/uL (0.0-0.5); EOS % 2.9 % (0.0-3.0); HEMATOCRIT 43.6 % (36.0-47.0); HEMOGLOBIN 14.1 g/dl (12.0-15.5); LYMPH # 4.5 10^3/uL (1.5-5.0); LYMPH % 45.6 % (24.0-44.0); MEAN CORPUSCULAR HEMOGLOBIN 29.1 pg (27.0-33.0); MEAN CORPUSCULAR HGB CONC 32.3 g/dl (32.0-36.5); MEAN CORPUSCULAR VOLUME 89.9 fl (80.0-96.0); MONO # 0.5 10^3/uL (0.0-0.8); MONO % 4.9 % (2.0-8.0); NEUTROPHILS # 4.5 10^3/uL (1.5-8.5); PLATELET COUNT, AUTOMATED 293 10^3/uL (150-450); RED BLOOD COUNT 4.85 10^6/uL (4.00-5.40); WHITE BLOOD COUNT 9.8 10^3/uL (4.0-10.0)
[2020-11-30 21:27] LABS: ERYTHROCYTE SEDIMENTATION RATE 5 mm/hr (0-20)
[2020-11-30 21:43] LABS: C REACTIVE PROTEIN QUANTITATIV < 0.30 MG/DL (0.00-0.30); FREE THYROXINE INDEX 3.8 % (1.3-4.8); MAGNESIUM LEVEL 1.9 MG/DL (1.8-2.4); T UPTAKE 35 % (30-39); THYROXINE (T4) 10.8 UG/DL (4.5-12.0)
--- NOTE | 2020-11-30 22:17 | REPVR ---
PROCEDURE INFORMATION: Exam: CT Head Without Contrast Exam date and time: 11/30/2020 9:51 PM Age: 25 years old Clinical indication: Pain; Dizziness and visual disturbance; Headache; Additional info: SAUL, dizziness, blurred vision TECHNIQUE: Imaging protocol: Computed tomography of the head without contrast. Radiation optimization: All CT scans at this facility use at least one of these dose optimization techniques: automated exposure control; mA and/or kV adjustment per patient size (includes targeted exams where dose is matched to clinical indication); or iterative reconstruction. COMPARISON: No relevant prior studies available. FINDINGS: Brain: Unremarkable. No hemorrhage. No significant white matter disease. No edema. Cerebral ventricles: No ventriculomegaly. Bones/joints: Unremarkable. No acute fracture. Paranasal sinuses: Visualized sinuses are unremarkable. No fluid levels. Mastoid air cells: Visualized mastoid air cells are well aerated. Soft tissues: Unremarkable. IMPRESSION: No acute abnormality. Electronically signed by: Андрей Hollins On 11/30/2020 22:17:33 PM
--- NOTE | 2020-11-30 22:21 | REPVR ---
PROCEDURE INFORMATION: Exam: CT Cervical Spine Without Contrast Exam date and time: 11/30/2020 9:51 PM Age: 25 years old Clinical indication: Pain; Other: SAUL; Additional info: SAUL, dizziness, blurred vision TECHNIQUE: Imaging protocol: Computed tomography images of the cervical spine without contrast. Radiation optimization: All CT scans at this facility use at least one of these dose optimization techniques: automated exposure control; mA and/or kV adjustment per patient size (includes targeted exams where dose is matched to clinical indication); or iterative reconstruction. COMPARISON: No relevant prior studies available. FINDINGS: Bones/joints: The intervertebral disc spaces and vertebral body heights are well maintained. The facet joints are intact. No fracture or subluxation. Discs/Spinal canal/Neural foramina: No bony spinal stenosis. Retropharyngeal space: Normal retropharyngeal soft tissues. Lymph nodes: Mildly enlarged bilateral cervical chain lymph nodes. Correlate clinically. Lungs: Lung apices are clear. Soft tissues: Unremarkable. IMPRESSION: 1. No acute bone or joint abnormality. 2. Mild bilateral anterior cervical chain lymphadenopathy, nonspecific. Electronically signed by: Андрей Hollins On 11/30/2020 22:21:45 PM
[2020-11-30] MEDS ORDERED: TOPA50TA8 PO (22:59)
[2020-11-30] MEDS ORDERED: IMIT50TA PO (22:59)
[2020-11-30] MEDS ORDERED: TOPA1TAB PO (22:59)
[2020-11-30 23:18] VITALS: BP 117/71
== END 2020-11-30 23:45 | disposition home or self-care (01) ==
LOC: M ED 19:30
DX: G43.909 Migraine, unspecified, not intractable, without status migrainosus (principal); R42 Dizziness and giddiness; J45.909 Unspecified asthma, uncomplicated; F90.9 Attention-deficit hyperactivity disorder, unspecified type
CPT/HCPCS: 70450; 72125; 80047; 81001; 83735; 84436; 84443; 84479; 84702; 85025; 85652; 86140; 87086; 96361; 96374; 99284; J1885; J2765; J3360

== ENCOUNTER → 2020-12-07 | Outpatient (CLI) | payer BC ==
[~2020-12-07] MED LIST changes: +CETI-24 PO; +DEXT5TAB3 PO; +EPIP0.3I2 IM; +IMIT50TA PO; +MECL-86 PO; +TOPA1TAB PO; +TOPA50TA8 PO; +TOPI50TA9 PO; +ZOFR4TAB16 PO
[2020-12-07 11:52] LABS: BASO % 0.3 % (0.0-1.0); EOS # 0.4 10^3/uL (0.0-0.5); EOS % 4.9 % (0.0-3.0); HEMATOCRIT 45.8 % (36.0-47.0); HEMOGLOBIN 14.5 g/dl (12.0-15.5); LYMPH # 2.9 10^3/uL (1.5-5.0); LYMPH % 36.8 % (24.0-44.0); MEAN CORPUSCULAR HGB CONC 31.7 g/dl (32.0-36.5); MEAN CORPUSCULAR VOLUME 91.6 fl (80.0-96.0); MONO # 0.4 10^3/uL (0.0-0.8); MONO % 5.3 % (2.0-8.0); NEUTROPHILS # 4.1 10^3/uL (1.5-8.5); NEUTROPHILS % 52.3 % (36.0-66.0); PLATELET COUNT, AUTOMATED 292 10^3/uL (150-450); WHITE BLOOD COUNT 7.7 10^3/uL (4.0-10.0)
[2020-12-07 12:35] LABS: ERYTHROCYTE SEDIMENTATION RATE 5 mm/hr (0-20)
[2020-12-07 12:45] LABS: ALBUMIN 3.8 GM/DL (3.2-5.2); ALT/SGPT 22 U/L (12-78); BILIRUBIN,TOTAL 0.5 MG/DL (0.2-1.0); BLOOD UREA NITROGEN 17 MG/DL (7-18); CALCIUM LEVEL 9.3 MG/DL (8.5-10.1); CARBON DIOXIDE LEVEL 26 MEQ/L (21-32); CHLORIDE LEVEL 108 MEQ/L (98-107); CREATININE FOR GFR 0.96 MG/DL (0.55-1.30); FREE T4 1.02 NG/DL (0.76-1.46); GLOMERULAR FILTRATION RATE > 60.0 (>60); GLUCOSE, FASTING 75 MG/DL (70-100); POTASSIUM SERUM 4.6 MEQ/L (3.5-5.1); SODIUM LEVEL 139 MEQ/L (136-145); TOTAL PROTEIN 7.7 GM/DL (6.4-8.2)
[2020-12-07 13:27] LABS: THYROID PEROXIDASE ANTIBODY < 28.0 U/ML (<60.0); TOTAL 25(OH) VITAMIN D 24.4 NG/ML (30.0-100.0); VITAMIN B12 LEVEL 522 PG/ML (247-911)
[2020-12-07 13:48] LABS: FOLATE 6.3 NG/ML (>5.4)
[2020-12-08 19:06] LABS: ANA (HEP2) Negative (.); Lyme Disease IgG/IgM Antibodie <0.91 ISR (0.00-0.90); Lyme Disease IgM Ab Quantitati <0.80 index (0.00-0.79); THRYOGLOBULIN ANTIBODIES (ATA) < 1.0 IU/mL (0.0-0.9); THYROGLOBULIN QUANTITATIVE 19.1 ng/mL (1.5-38.5)
== END ==
LOC: M LAB 10:50
PROVIDERS: ATTEND Physician Assistant
DX: R53.83 Other fatigue (principal); R51.9 Headache, unspecified

== ENCOUNTER 2020-12-08 14:04 | Emergency (ER) | payer BC ==
[~2020-12-08] VITALS: Ht 157.5 cm; Wt 60.1 kg
[~2020-12-08 14:04] MED LIST changes: -DEXT5TAB3 PO; -MECL-86 PO; -TOPI50TA9 PO
[2020-12-08] MEDS ORDERED: DEXT5TAB3 PO (14:47)
[2020-12-08] MEDS ORDERED: MECL-86 PO (14:47)
[2020-12-08] MEDS ORDERED: TOPI50TA9 PO (14:47)
[2020-12-08 15:10] LABS: HEMATOCRIT 44.1 % (36.0-47.0); HEMOGLOBIN 13.9 g/dl (12.0-15.5); MEAN CORPUSCULAR HEMOGLOBIN 29.1 pg (27.0-33.0); MEAN CORPUSCULAR HGB CONC 31.5 g/dl (32.0-36.5); MEAN CORPUSCULAR VOLUME 92.5 fl (80.0-96.0); PLATELET COUNT, AUTOMATED 271 10^3/uL (150-450); RED BLOOD COUNT 4.77 10^6/uL (4.00-5.40); WHITE BLOOD COUNT 9.7 10^3/uL (4.0-10.0)
[2020-12-08] MEDS ORDERED: ACETAMINOPHEN 325 MG TAB PO ONE (15:25)
[2020-12-08] MEDS ORDERED: NS 1,000 ML IV ONE (15:25)
[2020-12-08 15:30] LABS: BLOOD UREA NITROGEN 15 MG/DL (7-18); CALCIUM LEVEL 8.3 MG/DL (8.5-10.1); CARBON DIOXIDE LEVEL 19 MEQ/L (21-32); CHLORIDE LEVEL 114 MEQ/L (98-107); CREATININE FOR GFR 1.05 MG/DL (0.55-1.30); GLOMERULAR FILTRATION RATE > 60.0 (>60); GLUCOSE, FASTING 75 MG/DL (70-100); POTASSIUM SERUM 3.8 MEQ/L (3.5-5.1); SODIUM LEVEL 138 MEQ/L (136-145)
--- NOTE | 2020-12-08 16:19 | REP ---
INDICATION: constant dizziness, worse x 7 days. COMPARISON: 11/30/2020. TECHNIQUE: CT BRAIN PERFORMED IN THE AXIAL PLANE. CORONAL RECONSTRUCTION IMAGES ARE PERFORMED. FINDINGS: THE VENTRICLES ARE NORMAL IN SIZE AND POSITION. THERE IS NO MIDLINE SHIFT OR MASS EFFECT. GRIMALDO-WHITE DIFFERENTIATION IS WELL MAINTAINED. THERE IS NO ACUTE INTRACRANIAL HEMORRHAGE OR EXTRA-AXIAL FLUID COLLECTION. BONE WINDOW EXAMINATION IS UNREMARKABLE. VISUALIZED MASTOID AIR CELLS AND PARANASAL SINUSES ARE CLEAR. IMPRESSION: NEGATIVE NONCONTRAST CT BRAIN. <Electronically signed by Antonio Grimaldo > 12/08/20 [id number]
[2020-12-08 16:20] LABS: ETHYL ALCOHOL (ETHANOL) < 0.003 % (0.000-0.010); FREE T4 1.08 NG/DL (0.76-1.46)
[2020-12-08 18:14] LABS: AMPHETAMINES LEVEL URINE NEGATIVE (NEGATIVE); BARBITURATES URINE NEGATIVE (NEGATIVE); BENZODIAZEPINES URINE NEGATIVE (NEGATIVE); CANNABINOIDS URINE POSITIVE (NEGATIVE); COCAINE METABOLITE URINE NEGATIVE (NEGATIVE); METHADONE URINE NEGATIVE (NEGATIVE); OPIATES URINE NEGATIVE (NEGATIVE); PHENCYCLIDINE URINE NEGATIVE (NEGATIVE)
[2020-12-08] MEDS ORDERED: predniSONE 20 MG TAB PO ONE (18:35)
[2020-12-08] MEDS ORDERED: PRED20TA PO (18:37)
[2020-12-08 18:43] VITALS: BP 102/69
--- NOTE | 2020-12-09 15:43 | ECGEPIP ---
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
== END 2020-12-08 18:58 | disposition home or self-care (01) ==
LOC: M ED 14:04
DX: H81.09 Meniere's disease, unspecified ear (principal); G43.909 Migraine, unspecified, not intractable, without status migrainosus; J45.909 Unspecified asthma, uncomplicated; M41.9 Scoliosis, unspecified; F90.9 Attention-deficit hyperactivity disorder, unspecified type; Z79.899 Other long term (current) drug therapy; Z91.018 Allergy to other foods; Z91.048 Other nonmedicinal substance allergy status; Z77.098 Contact with and (suspected) exposure to other hazardous, chiefly nonmedicinal, chemicals

== ENCOUNTER → 2021-04-03 | Outpatient (REF) | payer BC ==
[~2021-04-03] MED LIST changes: +DEXT5TAB3 PO; +MECL-86 PO; +TOPI50TA9 PO
== END ==
LOC: M LAB REF 19:36
PROVIDERS: ATTEND Physician Assistant
DX: J20.9 Acute bronchitis, unspecified (principal)

== ENCOUNTER 2021-12-15 03:24 | Inpatient (IN) | payer OTHER ==
[2021-12-15] VITALS (32 sets, daily range): BP systolic 101–177; BP diastolic 56–108
[~2021-12-15] VITALS: Ht 157.5 cm; Wt 89.9 kg
[~2021-12-15 03:24] MED LIST changes: +ACET-683 PO; +DILA2TAB6 PO; +IBUP80TA PO; +IRON65TA2 PO; +PREN200C PO; +UNIS25TA3 PO; +VITA500C19 PO; +ZOLO25TA PO
[2021-12-15 04:34] LABS: BASO % 0.2 % (0.0-1.0); EOS # 0.4 10^3/uL (0.0-0.5); EOS % 3.3 % (0.0-3.0); LYMPH # 2.6 10^3/uL (1.5-5.0); LYMPH % 23.9 % (24.0-44.0); MEAN CORPUSCULAR HEMOGLOBIN 30.6 pg (27.0-33.0); MEAN CORPUSCULAR HGB CONC 32.4 g/dl (32.0-36.5); MEAN CORPUSCULAR VOLUME 94.4 fl (80.0-96.0); MONO # 1.1 10^3/uL (0.0-0.8); MONO % 9.6 % (2.0-8.0); NEUTROPHILS # 6.8 10^3/uL (1.5-8.5); NEUTROPHILS % 62.7 % (36.0-66.0); PLATELET COUNT, AUTOMATED 193 10^3/uL (150-450); WHITE BLOOD COUNT 10.9 10^3/uL (4.0-10.0)
[2021-12-15 04:40] LABS: CALCIUM LEVEL 9.2 MG/DL (8.5-10.1); CREATININE FOR GFR 1.35 MG/DL (0.55-1.30); GLOMERULAR FILTRATION RATE 50.5 (>60); POTASSIUM SERUM 4.7 MEQ/L (3.5-5.1)
[2021-12-15 04:42] LABS: CK-MB VALUE MASS 1.4 NG/ML (<3.6); MB/CK RELATIVE INDEX 0.88 (< OR =4)
[2021-12-15] MEDS ORDERED: KETOROLAC 30 MG/ML 1ML VIAL IV ONE (05:20)
[2021-12-15] MEDS ORDERED: NS 500 ML IV ONE (05:20)
[2021-12-15] MEDS ORDERED: ISOVUE-370 76% 100ML VIAL As Ordered ONE (05:24)
[2021-12-15] MEDS ORDERED: hydrALAZINE 20MG/ML 1ML VIAL (J0360 PER 20MG) IV ONE (05:40)
[2021-12-15] MEDS ORDERED: MAGNESIUM *L&D* 4GM/100ML BAG (40MG/ML) IV ONE (05:40)
[2021-12-15 05:41] LABS: CK-MB VALUE MASS 1.7 NG/ML (<3.6); MB/CK RELATIVE INDEX 1.6 (< OR =4)
[2021-12-15] MEDS ORDERED: MAGNESIUM SULFATE IN WATER 2GM 50ML BAG (40MG/ML) (FOR ER ONLY) IV ONE (05:45)
[2021-12-15 05:51] LABS: ALBUMIN 2.5 GM/DL (3.2-5.2); BILIRUBIN,DIRECT 0.1 MG/DL (0.0-0.2); BILIRUBIN,TOTAL 0.3 MG/DL (0.2-1.0); TOTAL PROTEIN 5.8 GM/DL (6.4-8.2)
[2021-12-15] MEDS ORDERED: CALCIUM GLUCONATE 1,000 MG in D5W MINI-BAG PLUS 100 ML IV PRN (05:55)
[2021-12-15] MEDS ORDERED: HOME MED LIST COMPLETE! XX SCH ×2 (06:05→08:30)
[2021-12-15 06:20] LABS: AMORPHOUS SEDIMENT SMALL (NEGATIVE); APPEARANCE, URINE CLEAR (CLEAR); BACTERIA, URINE AUTO 1+ (NEGATIVE); BILIRUBIN, URINE AUTO NEGATIVE (NEGATIVE); BLOOD, URINE BLOOD 3+ (NEGATIVE); COLOR, URINE STRAW (YELLOW); GLUCOSE, URINE (UA) AUTO NEGATIVE (NEGATIVE); KETONE, URINE AUTO NEGATIVE (NEGATIVE); LEUKOCYTE ESTERASE, URINE AUTO 1+ (NEGATIVE); NITRITE, URINE AUTO NEGATIVE (NEGATIVE); PROTEIN, URINE AUTO 1+ mg/dL (NEGATIVE); RBC, URINE AUTO 44 /HPF (0-3); RENAL EPITHELIAL CELLS 2 /HPF; SPECIFIC GRAVITY URINE AUTO 1.006 (1.002-1.035); SQUAMOUS EPITHELIAL CELL UR AU 2 /HPF (0-6); TRANSITIONAL EPITHELIAL AUTO 2 /HPF; UROBILINOGEN, URINE AUTO 0.2 mg/dL (0.0-2.0); WBC, URINE AUTO 19 /HPF (0-3)
[2021-12-15] MEDS ORDERED: hydrALAZINE 20MG/ML 1ML VIAL (J0360 PER 20MG) IV STA ×2 (06:27→19:45)
[2021-12-15] MEDS: LR 1,000 ML IV SCH ×2 (06:54→22:38)
[2021-12-15 07:07] LABS: RSV AMPLIFICATION NEGATIVE (NEGATIVE)
[2021-12-15] MEDS ORDERED: ONDANSETRON 4MG ORAL DISINTEGRATING TAB PO ONE (07:10)
[2021-12-15] MEDS ORDERED: MAGNESIUM SULFATE 4% INJ 20GM/500ML (40MG/ML) As Ordered ONE (07:50)
[2021-12-15] MEDS: MAG Sulf (OBGYN) 20GM/500ML 20,000 MG in IV 1 EA IV SCH (08:44)
[2021-12-15] MEDS: ACETAMINOPHEN 500 MG TAB PO PRN ×2 (09:20→18:33)
[2021-12-15] MEDS: IBUPROFEN 800 MG TAB PO PRN ×2 (13:24→22:39)
[2021-12-15] MEDS: traMADol 50 MG TAB PO PRN ×2 (15:05→19:38)
[2021-12-15] MEDS ORDERED: NIFEdipine 30 MG XL TAB PO STA (19:45)
[2021-12-16] VITALS (21 sets, daily range): BP systolic 105–146; BP diastolic 59–101
[2021-12-16] MEDS: ACETAMINOPHEN 500 MG TAB PO PRN ×2 (01:15→13:18)
[2021-12-16] MEDS: LR 1,000 ML IV SCH (03:25)
[2021-12-16] MEDS: MAG Sulf (OBGYN) 20GM/500ML 20,000 MG in IV 1 EA IV SCH (04:46)
[2021-12-16] MEDS: traMADol 50 MG TAB PO PRN (06:15)
[2021-12-16 06:30] LABS: HEMATOCRIT 36.9 % (36.0-47.0); HEMOGLOBIN 12.3 g/dl (12.0-15.5); MEAN CORPUSCULAR HEMOGLOBIN 30.9 pg (27.0-33.0); MEAN CORPUSCULAR HGB CONC 33.3 g/dl (32.0-36.5); MEAN CORPUSCULAR VOLUME 92.7 fl (80.0-96.0); PLATELET COUNT, AUTOMATED 255 10^3/uL (150-450); RED BLOOD COUNT 3.98 10^6/uL (4.00-5.40); WHITE BLOOD COUNT 8.4 10^3/uL (4.0-10.0)
[2021-12-16 06:57] LABS: ALBUMIN 2.4 GM/DL (3.2-5.2); BILIRUBIN,TOTAL 0.3 MG/DL (0.2-1.0); CALCIUM LEVEL 8.3 MG/DL (8.5-10.1); CREATININE FOR GFR 1.34 MG/DL (0.55-1.30); GLOMERULAR FILTRATION RATE 50.9 (>60); POTASSIUM SERUM 4.4 MEQ/L (3.5-5.1); TOTAL PROTEIN 6.5 GM/DL (6.4-8.2)
[2021-12-16 18:03] LABS: HEMATOCRIT 37.5 % (36.0-47.0); HEMOGLOBIN 12.4 g/dl (12.0-15.5); MEAN CORPUSCULAR HEMOGLOBIN 30.1 pg (27.0-33.0); MEAN CORPUSCULAR HGB CONC 33.1 g/dl (32.0-36.5); PLATELET COUNT, AUTOMATED 300 10^3/uL (150-450); RED BLOOD COUNT 4.12 10^6/uL (4.00-5.40); WHITE BLOOD COUNT 10.7 10^3/uL (4.0-10.0)
[2021-12-16 18:28] LABS: ALBUMIN 2.7 GM/DL (3.2-5.2); BILIRUBIN,TOTAL 0.3 MG/DL (0.2-1.0); CALCIUM LEVEL 8.2 MG/DL (8.5-10.1); CREATININE FOR GFR 1.55 MG/DL (0.55-1.30); POTASSIUM SERUM 3.9 MEQ/L (3.5-5.1); TOTAL PROTEIN 6.5 GM/DL (6.4-8.2)
[2021-12-16] MEDS ORDERED: SIMETHICONE 80MG CHEW TAB PO PRN (20:05)
[2021-12-16] MEDS: DOCUSATE SODIUM 100MG CAPSULE PO SCH (20:44)
[2021-12-16] MEDS: IBUPROFEN 800 MG TAB PO PRN (21:16)
[2021-12-17 03:00] VITALS: BP 137/74
[2021-12-17 06:40] LABS: HEMATOCRIT 38.1 % (36.0-47.0); HEMOGLOBIN 12.7 g/dl (12.0-15.5); MEAN CORPUSCULAR HEMOGLOBIN 30.8 pg (27.0-33.0); MEAN CORPUSCULAR HGB CONC 33.3 g/dl (32.0-36.5); MEAN CORPUSCULAR VOLUME 92.3 fl (80.0-96.0); PLATELET COUNT, AUTOMATED 297 10^3/uL (150-450); RED BLOOD COUNT 4.13 10^6/uL (4.00-5.40); WHITE BLOOD COUNT 9.1 10^3/uL (4.0-10.0)
[2021-12-17 07:06] LABS: ALBUMIN 2.4 GM/DL (3.2-5.2); BILIRUBIN,TOTAL 0.2 MG/DL (0.2-1.0); CALCIUM LEVEL 8.3 MG/DL (8.5-10.1); CREATININE FOR GFR 1.45 MG/DL (0.55-1.30); GLOMERULAR FILTRATION RATE 46.5 (>60); POTASSIUM SERUM 4.7 MEQ/L (3.5-5.1); TOTAL PROTEIN 6.6 GM/DL (6.4-8.2)
[2021-12-17] MEDS ORDERED: ACET-683 PO (07:22)
[2021-12-17 09:02] VITALS: BP 138/82
[2021-12-17] MEDS: DOCUSATE SODIUM 100MG CAPSULE PO SCH (09:10)
== END 2021-12-17 10:00 | disposition home or self-care (01) | DRG 776 ==
LOC: M ED 03:24 → M ED INP 05:54 → M LDI 07:45 → M OBS 12-16 21:17
PROVIDERS: ADMIT Obstetrics & Gynecology; ATTEND Obstetrics & Gynecology
DX: O14.15 Severe pre-eclampsia, complicating the puerperium (principal); Z88.5 Allergy status to narcotic agent; Z88.8 Allergy status to other drugs, medicaments and biological substances; Z79.899 Other long term (current) drug therapy

== ENCOUNTER → 2025-04-03 | Outpatient (RCR) ==
[~2025-04-03] MED LIST changes: +TOPI-21 PO; -TOPI50TA9 PO; -VITA500C19 PO; +VITA500C22 PO
== END ==
LOC: M EMPSSV 02-29 12:00 → EDSTATUS 02-29 12:43
PROVIDERS: ATTEND Family Medicine
DX: Z20.828 Contact with and (suspected) exposure to other viral communicable diseases (principal)